=== PATIENT | male | born 1945 | race Caucasian/White ===

== ENCOUNTER → 2016-06-03 | Outpatient (CLI) | payer MEDICARE, BC, OTHER ==
[2015-03-22 09:00] VITALS: BP 120/80
[~2016-06-03] MED LIST: CRESTOR5 MG PO; FLUC200T4 PO; FLUT16SP2 NS; FORM12CA IH; LOSA50TA6 PO; MOME220A6 IH; MONT10TA6 PO; NYST15CR TP; PANT40TA5 PO; PRAS10TA4 PO; PRED1TAB3 PO; PRED5TAB PO
[2016-06-03 08:22] LABS: CREATININE 1.1 mg/dL (0.7-1.3); GFR 66.2
== END | disposition home or self-care (01) ==
LOC: LAB 07:52
PROVIDERS: ATTEND Internal Medicine Cardiovascular Disease
DX: I71.2 Thoracic aortic aneurysm, without rupture (principal)
CPT/HCPCS: 36415; 82565; 84520

== ENCOUNTER → 2016-06-10 | Outpatient (CLI) | payer MEDICARE, BC, OTHER ==
[2015-03-22 09:00] VITALS: BP 120/80
[~2016-06-10] MED LIST changes: +IOHEXOL 350 MG/ML 100ML VIAL. IV ONE
--- NOTE | 2016-06-10 10:28 | RAD ---
CTA of the chest without and with contrast 06/11/2015 Clinical history: History of prominence of the ascending thoracic aorta. This is a follow-up scan. Technique: Unenhanced, contiguous, 5 mm axial sections were obtained through the chest. After the intravenous administration of 75 cc of Omnipaque 300, contiguous, 0.625 mm axial sections were obtained through the chest. 3 mm reconstructed axial and 3-D MIP sagittal and coronal images were obtained. Findings: Comparison study is dated 06/03/2015. The unenhanced CT images demonstrate mild scattered atherosclerotic plaque formation involving the thoracic aorta and its branches. Extensive coronary artery calcifications are seen. Small calcified left hilar and mediastinal lymph nodes are noted. Postcontrast CTA images demonstrate prominence of the descending thoracic aorta. This measures 4.4 cm in greatest diameter. This is unchanged. The descending thoracic aorta is tortuous but tapers normally. The heart is normal in size. No hilar or mediastinal lymphadenopathy is noted. No filling defect is seen within the major branches of either pulmonary artery. There is a common origin of the brachiocephalic and left common carotid artery from the thoracic aortic arch. This is a normal variation. This origin is patent. The origin of the left subclavian artery is patent. Small calcified granulomas are seen involving the left upper lobe. Dependent subsegmental atelectasis seen involving both lungs. No acute pulmonary infiltrate is seen. No pleural effusion or pneumothorax is noted. Images through the upper abdomen demonstrate mild atherosclerotic calcification of the abdominal aorta. Minimal S shaped curvature of the thoracolumbar spine is seen. Degenerative changes are seen involving the thoracic spine. Impression: Stable CT appearance of the thoracic aorta. No acute abnormality is seen.
== END | disposition home or self-care (01) ==
LOC: CT 08:37
PROVIDERS: ATTEND Internal Medicine Cardiovascular Disease
DX: I77.810 Thoracic aortic ectasia (principal)
CPT/HCPCS: 71275; Q9967

== ENCOUNTER → 2016-12-15 | Outpatient (CLI) | payer MEDICARE, BC, OTHER ==
[2015-03-22 09:00] VITALS: BP 120/80
[~2016-12-15] MED LIST changes: -IOHEXOL 350 MG/ML 100ML VIAL. IV ONE; -PRAS10TA4 PO; +PRAS10TA9 PO; +REGADENOSON 0.4 MG/5 ML DISP.SYRIN. IV ONE
--- NOTE | 2016-12-15 12:55 | RAD ---
APPROVED REPORT Test Type: Pharmacological Stress Nurse/Tech: Carol Stacy R.N. Test Indications: CAD Cardiac History: CAD, stents, HTN Medications: SEE EMR Medical History: SEE EMR Resting ECG: SB Resting Heart Rate: 49 bpm Resting Blood Pressure: 120/74mmHg Pretest Chest Pain: None Nurse/Tech Notes S1S2, lungs CTA, denied chest pain and SOA. Consent: The procedure was explained to the patient in lay terms. Informed consent was witnessed. Dante eout was entered into [facility]. History and Stress Test performed by Carol Stacy R.N. Pharm. Details Pharmacologic stress testing was performed using 0.4mg per 5ml of regadenoson given intravenously ove r 7-10 seconds. Stress Symptoms Slightly SOA. POST EXERCISE Reason for Termination: Infusion complete Max HR: 89 bpm Max Blood Pressure: 105/62mmHg Blood Pressure response to exercise: Normal blood pressure response during stress. Heart Rate response to exercise: Normal Chest Pain: No. Arrhythmia: No. ST Change: No. INTERPRETATION Stress EKG Conclusion: Baseline EKG showed sinus rhythm. No ischemic changes at peak stress. No arr hythmias. Imaging Protocol IMAGE PROTOCOL: Rest Tc-99m/stress Tc-99m 1 day Rest: Stress: Viability: Radiopharm.Tc99m CoreegfxjVk45b Sestamibi Ddfn57dDd 34mCi Duration 15min. 10min. Img Date 12/15/2016 12/15/2016 Inj-Img Gesn89bei. 60min. Rest Admin Site:IV - Left AntecubitalAdministrator:RT Landon (R)(N) Stress Admin Site: IV - Left AntecubitalAdministrator: JEROME Alvarado STRESS DATA End Diast. Vol.96.0mlAv. Heart Rate59.0bpm End Syst. Vol.31.0mlCO Index BSA3.8L/min Myocardial Zjdq122.0gEject. Fhxsqbhi50.0% Stress Rates Pk. Fill Rate2.68EDV/secLVtime Pk. Fill 235.29msec Pk. Empty Rate3.40ESV/secLVtime Pk. Zafje677.71msec 1/3 Pk. Fill0.93EDV/sec Stress Scores Regional WT0.00Summed WT0.00 Regional WM0.00Summed WM0.00 Study quality was good. Left Ventricular size was Normal at Rest and Stress. Lung uptake was Normal. Left Ventricular ejection fraction is 68%. The rest and stress images show normal perfusion, normal contraction and thickening. LV Perf. Quant 17 Seg. SSS1.00 17 Seg. SRS0.00 17 Seg. SDS1.00 Stress Defect Extent (% LAD)2.50Rest Defect Extent (% LAD)0.00Rev. Defect Extent (% LAD)1.90 Stress Defect Extent (% LCX) 0.00Rest Defect Extent (% LCX)0.00Rev. Defect Extent (% LCX)0.00 Stress Defect Extent (% RCA)0.00Rest Defect Extent (% RCA)0.00Rev. Defect Extent (% RCA)0.00 Stress Defect Extent (% ZAK)1.10Rest Defect Extent (% ZAK)0.00Rev. Defect Extent (% ZAK)0.90 Conclusion 1. Regadenoson cardioisotope stress test did not show any evidence of ischemia or infarct. 2. Normal left ventricular systolic function with ejection fraction calculated at 68%. 3. Low risk for cardiac events.
== END | disposition home or self-care (01) ==
LOC: NM 08:10
PROVIDERS: ATTEND Internal Medicine Cardiovascular Disease
DX: I25.10 Atherosclerotic heart disease of native coronary artery without angina pectoris (principal); I49.5 Sick sinus syndrome
CPT/HCPCS: 78452; 93017; 96374; 96375; 96376; A9500; J2785

== ENCOUNTER → 2016-12-21 | Outpatient (CLI) | payer MEDICARE, BC, OTHER ==
[2015-03-22 09:00] VITALS: BP 120/80
[~2016-12-21] MED LIST changes: -REGADENOSON 0.4 MG/5 ML DISP.SYRIN. IV ONE
[2016-12-21 09:35] LABS: CALCIUM 8.8 mg/dL (8.5-10.1); CREATININE 0.9 mg/dL (0.7-1.3); GFR 83.4; POTASSIUM 4.1 mmol/L (3.5-5.1)
== END | disposition home or self-care (01) ==
LOC: LAB 08:43
PROVIDERS: ATTEND Internal Medicine Cardiovascular Disease
DX: I25.10 Atherosclerotic heart disease of native coronary artery without angina pectoris (principal); I49.3 Ventricular premature depolarization
CPT/HCPCS: 36415; 80048; 83735

== ENCOUNTER → 2017-06-16 | Outpatient (CLI) | payer MEDICARE, BC, OTHER ==
[~2017-06-16] MED LIST changes: +CONTRAST GIVEN MC; -CRESTOR5 MG PO; -FLUC200T4 PO; -FLUT16SP2 NS; -FORM12CA IH; -LOSA50TA6 PO; -MOME220A6 IH; -MONT10TA6 PO; -NYST15CR TP; -PANT40TA5 PO; -PRAS10TA9 PO; -PRED1TAB3 PO; -PRED5TAB PO
[2017-06-16 08:24] LABS: BLOOD UREA NITROGEN 12 mg/dL (8-26)
[2017-06-16 08:24] LABS: CREATININE 0.8 mg/dL (0.7-1.3)
[2017-06-16 08:25] LABS: GFR 95.3
[2017-06-16] MEDS: IOHEXOL 300 MG/ML 100ML VIAL. IV (08:45)
== END | disposition home or self-care (01) ==
LOC: CT 07:25
DX: I71.2 Thoracic aortic aneurysm, without rupture (principal)
CPT/HCPCS: 36415; 71275; 82565; 84520; Q9967

== ENCOUNTER → 2017-12-15 | Outpatient (CLI) | payer MEDICARE, BC, OTHER ==
[2015-03-22 09:00] VITALS: BP 120/80
[~2017-12-15] MED LIST changes: -CONTRAST GIVEN MC; +CRESTOR5 MG PO; +FLUC200T4 PO; +FLUT16SP2 NS; +FORM12CA IH; +LOSA50TA7 PO; +MOME220A6 IH; +MONT10TA6 PO; +NYST15CR TP; +PANT40TA5 PO; +PRAS10TA9 PO; +PRED1TAB3 PO; +PRED5TAB PO
--- NOTE | 2017-12-15 09:29 | CARD ---
MR#: [id number] Date of Study: 12/15/2017 Ordering Physician: MOON LINN, Referring Physician: Soren RALPH: JESSIE Jones APPROVED REPORT EXAM: Two-dimensional and M-mode echocardiogram with Doppler and color Doppler. Other Information Quality : AverageHR: 63bpm INDICATION Cardiac Disease: CAD 2D DIMENSIONS RVDd3.1 (2.9-3.5cm)Left Atrium(2D)3.0 (1.6-4.0cm) IVSd1.0 (0.7-1.1cm)Aortic Root(2D)3.3 (2.0-3.7cm) LVDd4.7 (3.9-5.9cm)LVOT Diameter2.5 (1.8-2.4cm) PWd1.0 (0.7-1.1cm)IVSs1.5 (0.8-1.2cm) LVDs2.7 (2.5-4.0cm)FS (%) 42.1 % PWs1.5 (0.8-1.2cm)SV73.3 ml LVEF(%)73.1 (>50%) Aortic Valve AoV Peak Andres.165.0cm/sAoV VTI35.6cm AO Peak GR.10.9mmHgLVOT Peak Andres.87.5cm/s LVOT VTI 19.83cmAO Mean GR.6mmHg JOAQUIN (VMAX)2.36lh1KFA (VTI)2.83cm2 Mitral Valve MV E Jjxbxxdw72.1cm/sMV DECEL AAOR698pb MV A Ccicuavs95.5cm/sMV ALA47uy E/A Ratio0.9MVA (PHT)3.21cm2 TDI E/Lateral E'6.8E/Medial E'12.7 Pulmonary Valve PV Peak Lksvvocl810.2cm/sPV Peak Grad.4mmHg Tricuspid Valve TR P. Tvxgygpy319mg/sRAP EJWKMTPZ7ruFi TR Peak Gr.95feCiSORQ78kbLk LEFT VENTRICLE The left ventricle is normal size. There is normal left ventricular wall thickness. The left ventricu lar systolic function is normal. The ejection fraction is estimated at 65%. There is normal LV segmen blanca wall motion. The left ventricular diastolic function and filling is normal for age. RIGHT VENTRICLE The right ventricle is normal size. The right ventricular systolic function is normal. ATRIA The left atrium size is normal. The right atrium size is normal. The interatrial septum is intact wit h no evidence for an atrial septal defect or patent foramen ovale as noted on 2-D or Doppler imaging. AORTIC VALVE The aortic valve is mildly calcified. Doppler and Color Flow revealed no significant aortic regurgita tion. There is no significant aortic valvular stenosis. There is no aortic valvular vegetation. MITRAL VALVE The mitral valve is thickened but opens well. There is no evidence of mitral valve prolapse. There is no mitral valve stenosis. Doppler and Color Flow revealed no mitral valve regurgitation noted. TRICUSPID VALVE The tricuspid valve is normal in structure and function. Doppler and Color Flow revealed trace tricus pid valve regurgitation. The PA pressure was estimated at 20 mmHg. There is no tricuspid valve prolap se or vegetation. There is no tricuspid valve stenosis. PULMONIC VALVE The pulmonic valve is not well visualized. Doppler and Color Flow revealed mild pulmonic valvular reg urgitation. There is no pulmonic valvular stenosis. GREAT VESSELS The aortic root is normal size. The aortic root displays mild sclerocalcific changes of the aortic an nulus and root. The IVC is dilated and collapses >50% with inspiration. PERICARDIAL EFFUSION There is no pleural effusion. There is no evidence of significant pericardial effusion. Critical Notification Critical Value: No <Conclusion> The left ventricular systolic function is normal. The ejection fraction is estimated at 65%. There is normal LV segmental wall motion. Trace tricuspid valve regurgitation. The PA pressure was estimated at 20 mmHg. There is no evidence of significant pericardial effusion. Signed by : Moon Linn, Electronically Approved : 12/15/2017 09:28:10
== END | disposition home or self-care (01) ==
LOC: ECHO 07:59
PROVIDERS: ATTEND Internal Medicine Cardiovascular Disease
DX: I37.1 Nonrheumatic pulmonary valve insufficiency (principal); I25.10 Atherosclerotic heart disease of native coronary artery without angina pectoris; E78.2 Mixed hyperlipidemia; I10 Essential (primary) hypertension; E78.00 Pure hypercholesterolemia, unspecified; K21.9 Gastro-esophageal reflux disease without esophagitis; Z95.5 Presence of coronary angioplasty implant and graft; Z85.828 Personal history of other malignant neoplasm of skin; Z86.39 Personal history of other endocrine, nutritional and metabolic disease
CPT/HCPCS: 93306

== ENCOUNTER → 2018-06-22 | Outpatient (CLI) | payer MEDICARE, BC, OTHER ==
[2015-03-22 09:00] VITALS: BP 120/80
[~2018-06-22] MED LIST changes: +IOHEXOL 350 MG/ML 100 ML VIAL. IV ONE; +LOSA-73 PO; -LOSA50TA7 PO
[2018-06-22 09:32] LABS: CREATININE 0.9 mg/dL (0.7-1.3); GFR 82.9
[2018-06-22 09:46] LABS: CHOLESTEROL/HDL RATIO 3.5
--- NOTE | 2018-06-22 10:41 | RAD ---
PQRS Compliance statement: One or more of the following individualized dose reduction techniques were utilized for this examination: 1. Automated exposure control. 2. Adjustment of the mA and/or kV according to patient size. 3. Use of iterative reconstruction technique. Indication:CTA CHEST INJ 90ML OMNI 350 PREV SENT ASC AORTA DILATION TECHNIQUE: CT angiogram of the chest with IV contrast with multiplanar MIP reformats. 3-D volume reconstruction was performed. COMPARISON: 06/16/2017 FINDINGS: Heart is normal in size. No pericardial or pleural effusion. Coronary artery calcifications. Stable mild dilation of the ascending aorta measuring 4.3 cm. Descending thoracic aorta measures 2.5 cm. The aortic root measures 3.7 cm, previously 3.1 cm. No significant atherosclerotic calcification seen in the aorta. Clear neck base. No enlarged axillary, mediastinal or hilar adenopathy. Central airways are patent. Lungs are clear. Visualized sections through the liver, spleen, pancreas, gallbladder, adrenals and kidneys within normal limits. No suspicious bony lesion. IMPRESSION: Stable mild dilation of the ascending aorta as described above. Slight interval increase in the aortic root dilation as described above. Electronically signed by: Chad Day DO (06/22/2018 10:38 AM) [facility]
== END | disposition home or self-care (01) ==
LOC: CT 08:38
PROVIDERS: ATTEND Internal Medicine Cardiovascular Disease
DX: I77.810 Thoracic aortic ectasia (principal); I25.10 Atherosclerotic heart disease of native coronary artery without angina pectoris; E78.5 Hyperlipidemia, unspecified
CPT/HCPCS: 36415; 71275; 80061; 82565; 84520; Q9967

== ENCOUNTER → 2019-02-15 | Outpatient (CLI) | payer MEDICARE, BC, OTHER ==
[2015-03-22 09:00] VITALS: BP 120/80
[~2019-02-15] MED LIST changes: -IOHEXOL 350 MG/ML 100 ML VIAL. IV ONE; +MONT10TA49 PO; -MONT10TA6 PO; -PANT40TA5 PO; +PANT40TA77 PO; +REGADENOSON 0.4 MG/5 ML DISP.SYRIN. IV ONE
[2019-02-15 07:49] LABS: CHOLESTEROL/HDL RATIO 2.3
--- NOTE | 2019-02-15 16:33 | RAD ---
MR#: [id number] Date of Study: 02/15/2019 Ordering Physician: MOON DINH, Referring Physician: SREE RALPH Tech: REJI Sears, ARRT (R) (N) APPROVED REPORT Test Type: Pharmacological Stress Nurse/Tech: Angelita Juárez RN Test Indications: CAD Cardiac History: asthma, Stents Medications: See Electronic Medical Record Medical History: See Electronic Medical Record Resting ECG: SR Resting Heart Rate: 61 bpm Resting Blood Pressure: 135/68mmHg Pretest Chest Pain: None Nurse/Tech Notes Lungs CTA, S1S2 Consent: The procedure was explained to the patient in lay terms. Informed consent was witnessed. Dante eout was entered into [employer]. History and Stress Test performed by RT Landon (R) (N) Pharm. Details Pharmacologic stress testing was performed using 0.4mg per 5ml of regadenoson given intravenously ove r 7-10 seconds. Stress Symptoms No chest pain or symptoms. POST EXERCISE Reason for Termination: Infusion complete Max HR: 95 bpm Max Blood Pressure: 135/67mmHg Blood Pressure response to exercise: Normal blood pressure response during stress. Heart Rate response to exercise: normal response Chest Pain: No. Arrhythmia: Yes. PVC ST Change: No. INTERPRETATION Stress EKG Conclusion: Baseline EKG showed sinus rhythm. No ischemic changes at peak stress. PVC's without any significant arrhythmias. Imaging Protocol IMAGE PROTOCOL: Rest Tc-99m/stress Tc-99m 1 day Rest: Stress: Viability: Radiopharm.Tc99m AvigpghstTc72i Sestamibi Vkne22xRk 34mCi Img Date 02/15/2019 02/15/2019 Inj-Img Hgxh53xcq. 60min. Rest Admin Site:IV - Right AntecubitalAdministrator:JEROME Alvarado Stress Admin Site: IV - Right AntecubitalAdministrator: RT Landon (R)(N) STRESS DATA End Diast. Vol.83.0mlLVEDV index BSA42.0ml End Syst. Vol.24.0mlLVESV index BSA12.0ml Myocardial Eekx007.0gEject. Umrrfumr93.0% Stress Scores Regional WT0.00Summed WT1.00 Regional WM0.00Summed WM2.00 Study quality was good. Left Ventricular size was Normal at Rest and Stress. Lung uptake was . Left Ventricular ejection fraction is 72%. The rest and stress images show normal perfusion, normal contraction and thickening. LV Perf. Quant 17 Seg. SSS0.00 17 Seg. SRS0.00 17 Seg. SDS0.00 Stress Defect Extent (% LAD)0.00Rest Defect Extent (% LAD)0.00Rev. Defect Extent (% LAD)0.00 Stress Defect Extent (% LCX) 0.00Rest Defect Extent (% LCX)0.00Rev. Defect Extent (% LCX)0.00 Stress Defect Extent (% RCA)0.00Rest Defect Extent (% RCA)0.00Rev. Defect Extent (% RCA)0.00 Stress Defect Extent (% ZAK)0.00Rest Defect Extent (% ZAK)0.00Rev. Defect Extent (% ZAK)0.00 Conclusion 1. Regadenoson cardioisotope stress test did not show any evidence of ischemia or infarct. 2. Normal left ventricular systolic function with ejection fraction calculated at 72%. 3. Low risk for cardiac events. Signed by : Moon Dinh, Electronically Approved : 02/15/2019 11:18:46
== END | disposition home or self-care (01) ==
LOC: NM 07:10
PROVIDERS: ATTEND Internal Medicine Cardiovascular Disease
DX: I25.10 Atherosclerotic heart disease of native coronary artery without angina pectoris (principal); J45.909 Unspecified asthma, uncomplicated; Z95.5 Presence of coronary angioplasty implant and graft
CPT/HCPCS: 36415; 78452; 80061; 93017; A9500; J2785

== ENCOUNTER → 2019-08-16 | Outpatient (CLI) | payer MEDICARE, BC, OTHER ==
[2015-03-22 09:00] VITALS: BP 120/80
[~2019-08-16] MED LIST changes: +IOHEXOL 350 MG/ML 100 ML VIAL. IV ONE; -REGADENOSON 0.4 MG/5 ML DISP.SYRIN. IV ONE
--- NOTE | 2019-08-16 08:58 | CARD ---
MR#: [id number] Date of Study: 08/16/2019 Ordering Physician: MOON DINH, Referring Physician: MOON DINH Tech: Ailyn Valiente RDCS APPROVED REPORT EXAM: Two-dimensional and M-mode echocardiogram with Doppler and color Doppler. Other Information Quality : Good INDICATION Cardiac Disease: CAD 2D DIMENSIONS RVDd3.1 (2.9-3.5cm)Left Atrium(2D)3.6 (1.6-4.0cm) IVSd1.2 (0.7-1.1cm)Aortic Root(2D)3.0 (2.0-3.7cm) LVDd4.3 (3.9-5.9cm)LVOT Diameter2.1 (1.8-2.4cm) PWd1.0 (0.7-1.1cm)LVDs3.1 (2.5-4.0cm) FS (%) 26.5 %SV42.5 ml LVEF(%)52.2 (>50%) Aortic Valve AoV Peak Andres.167.8cm/sAoV VTI39.1cm AO Peak GR.11.3mmHgLVOT Peak Andres.100.7cm/s AO Mean GR.7mmHgAVA (VMAX)2.10cm2 JOAQUIN (VTI)2.30cm2 Mitral Valve MV E Stxyywku14.5cm/sMV DECEL SQOX162nv MV A Mczemjxl91.9cm/sE/A Ratio0.9 Tricuspid Valve TR P. Ruhxgnfv447sa/sRAP QGBQOOZK9euHs TR Peak Gr.72hrPoALJX03rpPj Pulmonary Vein S1 Mltqsejt89.0cm/sD2 Dnywkupj58.2cm/s LEFT VENTRICLE The left ventricle is normal size. There is mild concentric left ventricular hypertrophy. Left ventri lorri systolic function is normal. The Ejection Fraction is 55-60%. There is normal LV segmental wall m otion. Transmitral Doppler flow pattern is Grade I-abnormal relaxation pattern. RIGHT VENTRICLE The right ventricle is normal size. The right ventricular systolic function is normal. ATRIA The left atrium size is normal. The right atrium size is normal. The interatrial septum is intact wit h no evidence for an atrial septal defect or patent foramen ovale as noted on 2-D or Doppler imaging. AORTIC VALVE The aortic valve is moderately thickened but opens well. Doppler and Color Flow revealed trace to mil d aortic regurgitation. There is no significant aortic valvular stenosis. MITRAL VALVE The mitral valve is calcified but opens well. There is no evidence of mitral valve prolapse. There is no mitral valve stenosis. Doppler and Color-flow revealed trace mitral regurgitation. TRICUSPID VALVE The tricuspid valve is normal in structure and function. Doppler and Color Flow revealed trace tricus pid regurgitation. The PA pressure was estimated at 23 mmHg. There is no tricuspid valve stenosis. PULMONIC VALVE The pulmonary valve is normal in structure and function. Doppler and Color Flow revealed trace to mil d pulmonic valvular regurgitation. There is no pulmonic valvular stenosis. GREAT VESSELS The aortic root is normal in size. The ascending aorta is moderately dilated at 4.4 cm. The IVC is no rmal in size and collapses >50% with inspiration. PERICARDIAL EFFUSION There is no evidence of significant pericardial effusion. Critical Notification Critical Value: No <Conclusion> Left ventricle systolic function is normal. The Ejection Fraction is 55-60%. There is normal LV segmental wall motion. Transmitral Doppler flow pattern is Grade I-abnormal relaxation pattern. Trace to mild aortic regurgitation. Trace mitral regurgitation. Trace tricuspid regurgitation. The PA pressure was estimated at 23 mmHg. There is no evidence of significant pericardial effusion. Signed by : Moon Dinh, Electronically Approved : 08/16/2019 08:58:26
[2019-08-16 09:19] LABS: CREATININE 0.9 mg/dL (0.7-1.3); GFR 82.7
--- NOTE | 2019-08-16 10:24 | RAD ---
CT ANGIOGRAPHY CHEST History: Coronary artery disease. A ascending aortic dilatation. Technique: CT angiogram chest was performed with contrast. Coronal and sagittal reconstructions were performed. 3-D reconstructions were performed. Exposure: One or more of the following individualized dose reduction techniques were utilized for this examination: 1. Automated exposure control 2. Adjustment of the mA and/or kV according to patient size 3. Use of iterative reconstruction technique. Comparison: June 22, 2018. June 10, 2016 Findings: Chest: No pathologic lymphadenopathy within the chest. Ascending aortic dilatation measures 4.4 cm, unchanged. Coronary artery calcination. Bilateral gynecomastia. No consolidation or pleural effusion. Normal heart size. 2 mm right upper lobe pulmonary nodule (series 4 image 195), unchanged. Calcified left upper and lower lobe pulmonary nodules. 2 mm left lower lobe pulmonary nodule (image 813), unchanged. 2 mm left lower lobe pulmonary nodule (image 458), unchanged 2 mm right upper lobe pulmonary nodule (image 301), unchanged. 2 mm right upper lobe pulmonary nodules (image 377 and 399), unchanged. The pulmonary nodules are unchanged compared to 2019 with similar slice thickness. Comparison with 2017 is difficult due to increased slice thickness and small nodule size although several nodules are unchanged. Upper abdomen: Left hepatic lobe tiny hypodensity measures 4 mm, unchanged. Bones: Postop changes lower cervical spine. Multilevel thoracolumbar spondylosis. Impression: 1. Unchanged ascending aortic dilatation. 2. Multiple small pulmonary nodules, unchanged. Recommend one-year follow-up if high risk. 3. Unchanged small left hepatic lobe hypodensity, statistically benign cyst or hemangioma although too small to further characterize. Electronically signed by: Gabino Garcia DO (08/16/2019 10:21 AM) [id number]
== END | disposition home or self-care (01) ==
LOC: ECHO 07:45
PROVIDERS: ATTEND Internal Medicine Cardiovascular Disease
DX: R91.8 Other nonspecific abnormal finding of lung field (principal); I77.810 Thoracic aortic ectasia; M47.815 Spondylosis without myelopathy or radiculopathy, thoracolumbar region; Z98.890 Other specified postprocedural states
CPT/HCPCS: 36415; 71275; 82565; 84520; 93306; Q9967

== ENCOUNTER → 2020-02-05 | Outpatient (CLI) | payer MEDICARE, BC, OTHER ==
[2015-03-22 09:00] VITALS: BP 120/80
[~2020-02-05] MED LIST changes: -IOHEXOL 350 MG/ML 100 ML VIAL. IV ONE; +REGADENOSON 0.4 MG/5 ML DISP.SYRIN. IV ONE
--- NOTE | 2020-02-06 17:10 | RAD ---
MR#: [id number] Date of Study: 02/05/2020 Ordering Physician: MOON DINH, Referring Physician: SREE RALPH Tech: REJI Sears ARRT (R) (N) APPROVED REPORT Test Type: Pharmacological Stress Nurse/Tech: Nessa Haynes R.N. Test Indications: CAD Cardiac History: cardiac stents,htn,asthma Medications: See Electronic Medical Record Medical History: See Electronic Medical Record Resting ECG: SB Resting Heart Rate: 52 bpm Resting Blood Pressure: 125/72mmHg Pretest Chest Pain: No chest pain Nurse/Tech Notes S1S2, lungs cta Consent: The procedure was explained to the patient in lay terms. Informed consent was witnessed. Dante eout was entered into [facility]. History and Stress Test performed by RT Noah (Renato) (N) Pharm. Details Pharmacologic stress testing was performed using 0.4mg per 5ml of regadenoson given intravenously ove r 7-10 seconds. Stress Symptoms Slight SOA POST EXERCISE Reason for Termination: Infusion complete Max HR: 93 bpm Max Blood Pressure: 125/66mmHg Blood Pressure response to exercise: Normal blood pressure response during stress. Heart Rate response to exercise: WNL Chest Pain: No. Arrhythmia: Yes. started having pvc's ST Change: No. INTERPRETATION Stress EKG Conclusion: The resting EKG shows a sinus rhythm and a small borderline septal Q wave. The stress EKG shows no significant changes from baseline. No EKG evidence of stress-induced ischemia. Imaging Protocol IMAGE PROTOCOL: Rest Tc-99m/stress Tc-99m 1 day Rest: Stress: Viability: Radiopharm.Tc99m LjkzzbfhsSt08a Sestamibi Devx15dXr 32mCi Img Date 02/05/2020 02/05/2020 Inj-Img Jvpy55qgn. 60min. Rest Admin Site:IV - Right AntecubitalAdministrator:REJI Sears, DANIELLE (R)(N) Stress Admin Site: IV - Right AntecubitalAdministrator: RT Mae Zamora)(N) STRESS DATA End Diast. Vol.80.0mlAv. Heart Rate85.0bpm End Syst. Vol.14.0mlCO Index BSA0.0L/min Myocardial Xamt052.0gEject. Wcexvfzy10.0% Stress Rates Pk. Fill Rate2.97EDV/secLVtime Pk. Fill 139.92msec Pk. Empty Rate4.26ESV/secLVtime Pk. Zcsgw717.15msec 1/3 Pk. Fill1.12EDV/sec Stress Scores Regional WT0.00Summed WT0.00 Regional WM0.00Summed WM0.00 LV Perfusion The stress scans showed no significant defects. The rest scans showed no significant defects. Nuclear imaging shows no reversible ischemia or infarct. Wall Motion Left ventricular systolic function is normal with no regional wall motion abnormalities and an ejecti on fraction of greater than 70%. LV Perf. Quant 17 Seg. SSS0.00 17 Seg. SRS2.00 17 Seg. SDS0.00 Stress Defect Extent (% LAD)0.00Rest Defect Extent (% LAD)0.00Rev. Defect Extent (% LAD)0.00 Stress Defect Extent (% LCX) 0.00Rest Defect Extent (% LCX)21.30Rev. Defect Extent (% LCX)0.00 Stress Defect Extent (% RCA)0.00Rest Defect Extent (% RCA)0.00Rev. Defect Extent (% RCA)0.00 Stress Defect Extent (% ZAK)0.00Rest Defect Extent (% ZAK)3.70Rev. Defect Extent (% ZAK)0.00 Conclusion 1. No EKG evidence of stress-induced ischemia. 2. Nuclear imaging shows no reversible ischemia or infarct. 3. Normal left ventricular systolic function with an ejection fraction of greater than 70%. 4. Low risk Lexiscan nuclear stress test. Signed by : Ga Mcmahan MD Electronically Approved : 02/06/2020 17:09:54
== END ==
LOC: NM 08:51
PROVIDERS: ATTEND Internal Medicine Cardiovascular Disease
DX: I25.10 Atherosclerotic heart disease of native coronary artery without angina pectoris (principal); I10 Essential (primary) hypertension; Z95.5 Presence of coronary angioplasty implant and graft
CPT/HCPCS: 78452; 93017; A9500; J2785

== ENCOUNTER → 2020-08-21 | Outpatient (CLI) | payer MEDICARE, BC, OTHER ==
[2015-03-22 09:00] VITALS: BP 120/80
[~2020-08-21] MED LIST changes: +CONTRAST GIVEN. MC PRN; +IOHEXOL 350 MG/ML 100 ML VIAL. IV ONE; -REGADENOSON 0.4 MG/5 ML DISP.SYRIN. IV ONE
[2020-08-21 08:34] LABS: CREATININE 0.8 mg/dL (0.7-1.3); GFR 94.5
--- NOTE | 2020-08-21 10:12 | RAD ---
Site ID: [id number] EXAMINATION: CTA chest. Technique: Axial images with coronal and sagittal reconstructions with MIP technique are performed of chest with angiogram protocol. 90mL of Omnipaque 350 administered intravenously. One or more of the following radiation dose reduction techniques was used: automated exposure control , adjustment of mA and/or KV according to patient size, and/or utilization of iterative reconstructio n technique. HISTORY: 75 years Male Reason: ASCENDING AORTIC DILATION COMPARISON: June 22, 2018. FINDINGS: There is an ascending aortic aneurysm measuring 4.5 cm in caliber stable from June 22, 2018 exam. Th is is sent to the at the mid ascending aorta and does not involve the aortic root or the aortic arch. The descending aorta is normal in caliber. There is no dissection. The central pulmonary arteries are normally opacified. The heart size is normal. No pericardial effusion. Coronary artery calcifications are seen. There is no pleural effusion. The lungs demonstrate no significant consolidation, mass or suspicious nodule. The mediastinum demonstrates no significant lymphadenopathy or mass. No hilar or axillary lymphadenop athy. Sections of the abdomen abdomen appear grossly unremarkable. Degenerative disc changes are seen at multiple levels throughout the thoracic spine. IMPRESSION: Ascending aortic aneurysm measuring 4.5 cm unchanged from June 2018 exam. Electronically signed by: Aashish Christie MD (08/21/2020 10:10 AM) [id number]
--- NOTE | 2020-08-21 16:34 | CARD ---
MR#: [id number] Date of Study: 08/21/2020 Ordering Physician: MOON LINN, Referring Physician: MOON LINN, Tech: APPROVED REPORT EXAM: Two-dimensional and M-mode echocardiogram with Doppler and color Doppler. Other Information Quality : GoodHR: 65bpm Rhythm : NSR INDICATION Hypertension/HCVD CAD 2D DIMENSIONS RVDd3.2 (2.9-3.5cm)Left Atrium(2D)3.3 (1.6-4.0cm) IVSd1.2 (0.7-1.1cm)Aortic Root(2D)3.2 (2.0-3.7cm) LVDd4.4 (3.9-5.9cm)LVOT Diameter2.2 (1.8-2.4cm) PWd1.2 (0.7-1.1cm)LVDs3.1 (2.5-4.0cm) FS (%) 28.7 %SV49.0 ml LVEF(%)55.5 (>50%) Aortic Valve AoV Peak Andres.239.2cm/sAoV VTI64.4cm AO Peak GR.23.0mmHgLVOT Peak Andres.110.6cm/s AO Mean GR.12mmHgAVA (VMAX)1.79cm2 JOAQUIN (VTI)1.60cm2 Mitral Valve MV E Jniguakn45.3cm/sMV DECEL [id number] MV A Ahamnxxd20.7cm/sE/A Ratio1.0 Pulmonary Valve PV Peak Zwkjwwgz55.7cm/s Tricuspid Valve TR P. Dheokfzz025nu/sRAP GTCQMQFV1bhFn TR Peak Gr.21nxNkZTXX64djPi Pulmonary Vein S1 Xqjqvgcx18.8cm/sD2 Qxlggtzu43.3cm/s PVa priiixfv028yaic LEFT VENTRICLE The left ventricle is normal size. There is mild concentric left ventricular hypertrophy. The left ve ntricular systolic function is normal. The ejection fraction is 55-60%. There is normal LV segmental wall motion. Tissue Doppler imaging reveals mild left ventricular diastolic dysfunction. RIGHT VENTRICLE The right ventricle is normal size. There is normal right ventricular wall thickness. The right ventr icular systolic function is normal. ATRIA The left atrium size is normal. The right atrium size is normal. The interatrial septum is intact wit h no evidence for an atrial septal defect or patent foramen ovale as noted on 2-D or Doppler imaging. AORTIC VALVE The aortic valve is mildly to moderately thickened. Doppler and Color Flow revealed trace significant aortic regurgitation. There is mild valvular aortic stenosis. There is no aortic valvular vegetation . MITRAL VALVE The mitral valve is normal in structure and function. There is no evidence of mitral valve prolapse. There is no mitral valve stenosis. Doppler and Color-flow revealed trace mitral regurgitation. TRICUSPID VALVE The tricuspid valve is normal in structure and function. Doppler and Color Flow revealed trace tricus pid regurgitation. PAP 26 mmHg. There is no tricuspid valve stenosis. GREAT VESSELS The aortic root is normal in size. The ascending aorta is Moderately dilated. The pulmonary artery is normal. The IVC is normal in size and collapses >50% with inspiration. PERICARDIAL EFFUSION There is no pleural effusion. There is no evidence of significant pericardial effusion. Critical Notification Critical Value: No <Conclusion> The left ventricular systolic function is normal. The ejection fraction is 55-60%. There is normal LV segmental wall motion. The ascending aorta is moderately dilated. There is mild valvular aortic stenosis. Trace mitral regurgitation. Trace tricuspid regurgitation. PAP 26 mmHg. There is no evidence of significant pericardial effusion. Signed by : Moon Linn, Electronically Approved : 08/21/2020 16:33:55
== END ==
LOC: CT 10:29
PROVIDERS: ATTEND Internal Medicine Cardiovascular Disease
DX: I77.810 Thoracic aortic ectasia (principal); I25.10 Atherosclerotic heart disease of native coronary artery without angina pectoris; M47.814 Spondylosis without myelopathy or radiculopathy, thoracic region
CPT/HCPCS: 36415; 71275; 82565; 84520; 93306; Q9967